=== PATIENT | female | born 1955 | race Caucasian/White ===

== ENCOUNTER 2020-06-22 17:22 | Emergency (ER) | payer SELFPAY ==
[2020-06-22 17:32] VITALS: BP 146/82; PULSE 76; RESP 20; TEMP 36.6; O2SAT 97
--- NOTE | 2020-06-22 17:33 | ED.URI ---
HPI - URI/Sore Throat General Chief Complaint: Upper Respiratory Infection Stated Complaint: runny nose/cough/difficulty sleeping Source: patient and RN notes reviewed Mode of arrival: ambulatory Limitations: no limitations History of Present Illness HPI Narrative: 64 yo female presents to the with 10 days of a runny nose and dry cough for 1 week. Denies fevers, nausea, vomiting, diarrhea. Denies chest pain. Denies abdominal pain. Denies any Covid exposure. Denies any shortness of breath. Has been using NyQuil and DayQuil with some relief, states it wears off after 4 to 5 hours. Denies any past medical history. Related Data Allergies Allergy/AdvReac Type Severity Reaction Status Date / Time No Known Allergies Allergy Verified 06/22/20 17:47 Review of Systems Review of Systems: Narrative: CONSTITUTIONAL: Denies fever, chills, or sweats. EYES: Denies visual changes, redness, or discharge. ENT: Positive for rhinorrhea, congestion. Denies sore throat, or otalgia. CARDIOVASCULAR: Denies chest pain, palpitations, or edema. RESPIRATORY: Positive for dry cough or denies dyspnea. GASTROINTESTINAL: Denies abdominal pain, nausea, vomiting, or diarrhea. GENITOURINARY: Denies dysuria or hematuria. SKIN: Denies rash or itching. MUSCULOSKELETAL: Denies back pain, joint pain, or myalgia. NEUROLOGIC: Denies headache, numbness, or weakness. PSYCHIATRIC: Denies anxiety or depression. All other systems reviewed are negative, except as documented in HPI. PMFSH Comments At the time of my signature, I reviewed and agree with the nursing past medical, surgical, social, and family history. There is no relevant family history pertinent to the patient complaint. Exam Narrative: Exam Narrative: GENERAL: This is a well-nourished, well-developed patient, in no apparent distress. HEAD: normocephalic, atraumatic. EYES: PERRL. Sclera clear/white. Vision is grossly intact. EARS: External ears normal, auditory canals clear and without drainage, TMs normal without perforation. Hearing grossly intact. NOSE: Large amount of clear, thick nasal discharge, nares bilaterally red boggy, + rhinorrhea. No sinus tenderness THROAT: Mucous membranes moist, posterior pharynx large amount of postnasal drip, clear, thick NECK: Neck supple, non-tender without lymphadenopathy, masses or thyromegaly. CARDIOVASCULAR: Regular rate and rhythm without murmurs, gallops, or rubs. RESPIRATORY: Clear to auscultation. Breath sounds equal bilaterally. No wheezes, rales, or rhonchi. GASTROINTESTINAL: Abdomen soft, non-tender, nondistended. Bowel sounds are active. No hepato-splenomegaly, or palpable masses. No guarding. SKIN: warm, intact with no suspicious lesions or rash, good texture and turgor. NEURO: awake, alert, and oriented to person, place and time. There were no obvious focal neurologic abnormalities. EXTREMITIES: No clubbing, cyanosis, or edema. No joint tenderness, effusion, or edema noted. No calf tenderness. Negative Homans sign bilaterally. BACK: Nontender without deformity or crepitance. No flank tenderness. Course Vital Signs Vital signs: Vital Signs Temperature 97.9 F 06/22/20 17:32 Pulse Rate 76 06/22/20 17:32 Respiratory Rate 20 06/22/20 17:32 Blood Pressure 146/82 H 06/22/20 17:32 Pulse Oximetry 97 06/22/20 17:32 Temperature 97.9 F 06/22/20 17:32 Pulse Rate 76 06/22/20 17:32 Respiratory Rate 20 06/22/20 17:32 Blood Pressure 146/82 H 06/22/20 17:32 Pulse Oximetry 97 06/22/20 17:32 Reviewed Vital Signs Temp Pulse Resp BP Pulse Ox 06/22/20 17:32 97.9 F 76 20 146/82 H 97 Patient Weight 06/22/20 23:59 Weight 58.967 kg Reviewed, blood pressure mildly elevated will have patient follow-up MDM - URI/Sore Throat Differential Diagnosis Differential diagnosis: Likely upper respiratory infection, otitis media, sinusitis, viral infection, bronchitis, influenza and pharyngitis Critical Care Time Critical
== END 2020-06-22 18:00 | disposition home or self-care (01) ==
PROVIDERS: Emergency Provider Nurse Practitioner
DX: J01.90 Acute sinusitis, unspecified (principal); J40 Bronchitis, not specified as acute or chronic
CPT/HCPCS: 99213; G0463

== ENCOUNTER 2020-08-17 14:16 | Outpatient (CLI) | payer OTHER, SELFPAY | END 2020-08-17 14:17 | disposition home or self-care (01) | LOC: ANHCOVIDVC 14:16 | DX: Z23 Encounter for immunization (principal) | CPT/HCPCS: 0001A; 91300 ==

== ENCOUNTER 2020-09-07 14:17 | Outpatient (CLI) | payer OTHER, SELFPAY | END 2020-09-07 14:18 | disposition home or self-care (01) | LOC: ANHCOVIDVC 14:17 | DX: Z23 Encounter for immunization (principal) | CPT/HCPCS: 0002A; 91300 ==

== ENCOUNTER 2020-09-15 12:52 | Emergency (ER) | payer OTHER, SELFPAY ==
--- NOTE | ~2020-09-15 | XR_ITS ---
EXAMINATION: XR ankle LT min 3V EXAM DATE: 09/15/2020 13:22 INDICATION: Pain/swelling lat Lt ankle;slipped,twisted ankle 10 days ago. Initial encounter. TECHNIQUE: Left ankle frontal, lateral and oblique projections obtained and reviewed. There is no pr ior study for comparison. FINDINGS: Acute closed posttraumatic oblique fracture of the left fibular distal metaphysis into the distal tibiofibular syndesmosis. About 4 mm displacement. Very minimal posterior angulation. Mortise relationship appears maintained. Swelling over the lateral aspect of the ankle. No other acute findi ngs. IMPRESSION: Acute left fibular distal metaphyseal fracture into syndesmosis. Reviewed, dictated and finalized at location A.
[2020-09-15 12:59] VITALS: BP 146/78; PULSE 79; RESP 16; TEMP 36.8; O2SAT 99
--- NOTE | 2020-09-15 13:12 | ED.GENADULT ---
HPI - General Adult General Chief complaint: Extremity Injury, Lower Stated complaint: injured l ankle Time Seen by Provider: 09/15/20 13:12 Source: patient and RN notes reviewed Mode of arrival: ambulatory Limitations: no limitations History of Present Illness HPI narrative: 65-year-old female presents with complaints of pain and swelling to left ankle for the past 10 days. Jennifer reports slamming left leg into dresser after slipping on something in her bedroom, increasing pain and swelling over the past 24-48 hours. [place]ago wrap, icing twice a day, and Tylenol at bedtime without relief. No radiating pain. No numbness or tingling or loss of mobility. Denies inability to bear weight. Exacerbation factor consist of movement and bearing weight. Some relieving factor is immobility. Discoloration. Denies altered sensation and suspected foreign body. Denies fever or chills. The patient reports she have not been diagnosed with COVID-19. The patient reports she received 2 doses of Pfizer vaccine last dose on September 07, 2020. The patient reports she is not waiting for the results of a COVID-19 lab test. The patient reports she do not have weakness or fatigue. The patient reports she do not have a new or worsening cough or shortness of breath. Denies chest pain. The patient reports she do not have any rhinorrhea, congestion, sore throat, loss of taste or smell, nausea, vomiting, abdominal pain, and diarrhea. Tolerating po intake well. Denies recent traveling. Denies concerns for COVID-19 or exposures been home with limited outdoor exposure except for essential household needs, work, and return home. At this time, patient is not suspected of having COVID-19. Some parts of this dictation were generated by voice recognition software and may contain typographical and/or grammatical inaccuracies. Related Data Home Medications Medication Instructions Recorded Confirmed No Home Medications 09/17/20 09/17/20 Allergies Allergy/AdvReac Type Severity Reaction Status Date / Time No Known Allergies Allergy Verified 06/22/20 17:47 Review of Systems Review of Systems: Narrative: CONSTITUTIONAL: Denies fever, chills, sweats. EYES: Denies visual changes, redness, discharge. ENT: Denies rhinorrhea, congestion, sore throat, otalgia. CARDIOVASCULAR: Denies chest pain, palpitations, edema. RESPIRATORY: Denies dyspnea, wheezing, cough. GASTROINTESTINAL: Denies abdominal pain, nausea, vomiting, diarrhea. SKIN: Denies rash or itching. MUSCULOSKELETAL: Denies acute back pain or myalgia. Complains of LT ankle bruising, swelling, and pain. NEUROLOGIC: Denies numbness or focal weakness. PSYCHIATRIC: Denies anxiety or depression. All other systems reviewed & are unremarkable except as noted in HPI and below. 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 There is no relevant family history pertinent to the presenting complaint. Exam Narrative: Exam Narrative: GENERAL: This is a well-nourished, well-developed patient, in no apparent distress. Talks in full sentences without de
== END 2020-09-15 14:00 | disposition home or self-care (01) ==
PROVIDERS: Emergency Provider Nurse Practitioner Family
DX: S82.832A Other fracture of upper and lower end of left fibula, initial encounter for closed fracture (principal); W22.8XXA Striking against or struck by other objects, initial encounter; F17.219 Nicotine dependence, cigarettes, with unspecified nicotine-induced disorders
CPT/HCPCS: 29515; 73610; 82948; 99213; 99214; G0463

== ENCOUNTER → 2023-04-05 12:49 | Outpatient (CLI) | payer OTHER, SELFPAY ==
--- NOTE | ~2023-04-05 | CT_ITS ---
EXAMINATION:CT lung screening DATE: 04/05/2023 13:04 INDICATION: Tobacco use. Current smoker with 69 pack year history. TECHNIQUE: Computed tomography (CT) of the chest was performed without intravenous contrast. Automate d exposure control and iterative reconstruction technique were employed. The dose-length product (DLP ) was 76.88 mGy-cm. COMPARISON: None. FINDINGS: There is mild scarring at the lung apices. There is mild emphysema. Calcified right lung no dules and calcified right hilar and mediastinal lymph nodes are consistent with old granulomatous dis ease. There is mild elevation of left hemidiaphragm. There is mild atelectasis bilaterally. No pleura l effusion. The heart size is normal. There is a trace pericardial effusion. There are coronary arter y calcifications. Calcified abdominal lymph nodes and splenic calcifications are consistent with old granulomatous disease. There is severe thoracic spondylosis. IMPRESSION: 1. Lung-RADS category 2: Benign appearance or behavior. Continue annual screening with noncontrast lo w-dose chest CT in 12 months. Reviewed, dictated and finalized at location B. IMPRESSION: 1. Lung-RADS category 2: Benign appearance or behavior. Continue annual screeni ng with noncontrast low-dose chest CT in 12 months.
== END ==
PROVIDERS: PCP Emergency Medicine; Visit Provider Emergency Medicine
DX: Z12.2 Encounter for screening for malignant neoplasm of respiratory organs (principal); R91.8 Other nonspecific abnormal finding of lung field; Z72.0 Tobacco use
CPT/HCPCS: 71271

== ENCOUNTER 2023-05-01 07:37 | Outpatient (CLI) | payer OTHER, SELFPAY ==
--- NOTE | 2023-05-01 08:03 | ECHO_ITS ---
Patient Info Name: Tabatha Peacock Age: 67 years : 1955 Gender: Female Ht: 64 in Wt: 130 lbs BSA: 1.64 m2 HR: 65 bpm BP: 128 / 79 mmHg Technical Quality: Good Exam Date: 05/01/2023 8:07 AM Exam Location: [facility] Patient Status: Outpatient Admit Date: 05/01/2023 Staff Ordering Physician: Christian Leavitt MD Stemhole Borer And Topper: Micki Stratton RDCS Attending Provider: Christian Leavitt MD Referring Physician: Dagmar PANG; Exam Type: CA echo doppler color flow Study Info Indications R01.1 - Cardiac murmur, unspecified Complete two-dimensional, color flow and Doppler transthoracic echocardiogram is performed. Summary 1. Complete two-dimensional, color flow and Doppler transthoracic echocardiogram is performed. 2. Left ventricular chamber dimension is normal. 3. Left ventricular systolic function is normal, estimated at 60-65%. 4. The left ventricular diastolic function is grade I diastolic dysfunction. 5. E/e' 9 is minimally elevated. 6. The mitral valve has mildly calcified annulus. 7. There is mild tricuspid valve regurgitation. 8. No pulmonary hypertension, estimated pulmonary arterial systolic pressure is 32 mmHg. 9. There is trace pulmonic regurgitation. 10. There is trivial pericardial effusion. Left Ventricle E/e' 9 is minimally elevated. Left ventricular chamber dimension is normal. Left ventricular systolic function is normal, estimated at 60-65%. The left ventricular diastolic function is grade I diastolic dysfunction. Right Ventricle Right ventricular systolic function is normal and with normal TAPSE 1.9 cm. Right ventricular chamber dimension is normal. Left Atria Left atrial chamber dimension is normal. Right Atria Right atrial chamber dimension is normal. Aortic Valve The aortic valve is trileaflet. There is no aortic valve stenosis. There is no aortic valve regurgitation. Pulmonic Valve There is trace pulmonic regurgitation. Mitral Valve The mitral valve has mildly calcified annulus. There is no mitral valve stenosis. There is no mitral valve regurgitation. Tricuspid Valve There is mild tricuspid valve regurgitation. No pulmonary hypertension, estimated pulmonary arterial systolic pressure is 32 mmHg. Pericardium/Pleural There is trivial pericardial effusion. Inferior Vena Cava Normal inferior vena cava with >50% collapse upon inspiration consistent with normal right atrial pressure, 5 mmHg. Aorta The aortic root size at the sinus of Valsalva is normal. Left Ventricular Outflow Tract Name Value Normal LVOT 2D LVOT Diameter 1.9 cm LVOT Doppler LVOT Peak Gradient 5 mmHg LVOT Mean Gradient 3 mmHg LVOT VTI 24 cm LVOT VTI/AV VTI Ratio 0.8 LVOT Stroke Volume 69 ml LVOT CO 4.3 l/min LVOT CI 2.7 l/min/m2 Pulmonic Valve Name Value Normal RVOT Doppler
== END 2023-05-01 07:38 | disposition home or self-care (01) ==
PROVIDERS: PCP Emergency Medicine; Visit Provider Emergency Medicine
DX: R01.1 Cardiac murmur, unspecified (principal); I34.81 Nonrheumatic mitral (valve) annulus calcification; I36.1 Nonrheumatic tricuspid (valve) insufficiency
CPT/HCPCS: 93306